=== PATIENT | female | born 1950 | race Caucasian/White ===

== ENCOUNTER 2022-12-28 09:51 | Day surgery (SDC) | payer OTHER ==
[~2022-12-28] VITALS: Ht 157.5 cm; Wt 60.3 kg
[2022-12-28] MEDS ORDERED: fentaNYL citrate 0.05 MG/ML VIAL ONE (10:50)
[2022-12-28] MEDS ORDERED: MIDAZOLAM 5 MG/5 ML VIAL ONE (10:50)
[2022-12-28] MEDS ORDERED: LIDOCAINE 2% 100 MG/5 ML UJET TP ONE (10:51)
[2022-12-28] MEDS ORDERED: MIDAZOLAM 5 MG/5 ML VIAL IV ONE (13:10)
[2022-12-28] MEDS ORDERED: fentaNYL citrate 0.05 MG/ML VIAL IVP ONE (13:10)
== END 2022-12-28 12:20 | disposition home or self-care (01) ==
LOC: MDS 09:51 → MMU 09:52 → MDS 12:20
PROVIDERS: ATTEND Internal Medicine Gastroenterology
DX: R19.5 Other fecal abnormalities (principal); K62.5 Hemorrhage of anus and rectum; K63.5 Polyp of colon; J45.909 Unspecified asthma, uncomplicated; M19.90 Unspecified osteoarthritis, unspecified site
CPT/HCPCS: 45385; J2250; J3010; 88305